=== PATIENT | male | born 1945 | race Caucasian/White ===

== ENCOUNTER 2016-07-13 11:19 | Inpatient (IN) | payer OTHER ==
--- NOTE | ~2016-07-13 | DS ---
Unit #: [id number] #: [id number] Patient: TASHIA STREETER [id number] [address] [place], [place] [address] [id number] I MR#: [id number] NAME: TASHIA STREETER ROOM: 463 Age: 71 Sex: M Admission Date: 07/13/2016 : 1945 Discharge Date: 07/14/2016 Attending Physician: Mandy Smith M.D. Referring Physician: No Primary Care Physician Primary Care Physician: No Primary Care Physician DISCHARGE SUMMARY REASON FOR ADMISSION Back pain from lung biopsy. HISTORY OF PRESENT ILLNESS/HOSPITAL COURSE The patient is a very pleasant 71-year-old male with underlying history of chronic obstructive pulmonary disease, failure to thrive, hypertension as well as resumed lung malignancy. He presented after he had lung biopsy performed on 07/11/2016 at [facility]. He stated that he had back pain ever since that time. He characterized it as sharp. It was noted that he was acutely hypoxic in the emergency room with an O2 saturation of 89% on room air. He underwent a CT of the chest with PE protocol that showed a left upper lung lobe mass as well as patchy airspace disease involving the right lower lobe. The patient received IV Levaquin, O2 support, as well as symptoms management through his hospital course. His pain has now completely resolved. Biopsy results were requested, but currently are pending. From our standpoint the patient is clinically stable to be discharged home. He is to follow up with the [facility] in regard to biopsy results as well as presumed lung malignancy. At this point in time he will be given Levaquin 750 mg p.o. daily for 10 additional days for community acquired pneumonia. FINAL DISCHARGE DIAGNOSES 1. Acute hypoxic respiratory failure, now resolved. 2. Community acquired pneumonia. 3. Lung mass. Workup in progress as outpatient. 4. Acute exacerbation of chronic obstructive pulmonary disease, improved. 5. Hypertension. 6. Weight loss. 7. Failure to thrive. DISCHARGE MEDICATIONS 1. Duo-Neb aerosol solution q.6 h. scheduled. 2. Symbicort 160/4.5 two puffs b.i.d. 3. Prednisone 40 mg p.o. daily. Home medication. 4. Levaquin 750 mg p.o. daily times 10 days. 5. Mingus 5/325 mg 1 tablet p.o. q.6 h. p.r.n. Unit #: [id number] #: [id number] Patient: TASHIA STREETER DISCHARGE CONDITION Stable. DISCHARGE DISPOSITION Home. NOTE It should be noted that all plans have been reviewed with the patient's daughter as well as [id number], present at bedside. They are well aware of the importance of followup in regard to the patient's biopsy results. Dictated by... Hermann Davis/aravind TD: 07/16/2016 09:18 JOB #: [id number] DISCHARGE SUMMARY Page 1 of 1 X Milly Thapa MD X DISCHARGE SUMMARY
--- NOTE | ~2016-07-13 | EKG ---
PATIENT: TASHIA STREETER UNIT #: [id number] Ventricular Rate: 81 BPM Atrial Rate: 81 BPM P-R Interval: 108 ms QRS Duration: 90 ms Q-T Interval: 396 ms QTC Calculation(Bezet): 460 ms P Craig: 80 degrees Calculated R Craig: -16 degrees Calculated T Craig: 15 degrees Diagnosis Line: Sinus rhythm with short DE Diagnosis Line: Otherwise normal ECG Diagnosis Line: When compared with ECG of 10-FEB-2012 14:56, Diagnosis Line: No significant change was found Diagnosis Line: Confirmed by MORELIA WRIGHT MD ([id number]) on Diagnosis Line: 07/15/2016 8:46:07 AM INTERPRETING MD: MECCA
--- NOTE | ~2016-07-13 | CR63 ---
[facility] A Service of [facility] & [facility] RADIOLOGY TEXT RESULTS PATIENT: TASHIA STREETER LOCATION: [facility] : 47 UNIT #: [id number] AGE: [address]: Rishi Kate DO SEX: M ORDER DR: [id number] [facility] [address] [place], [place] [address] [id number] E MR#: [id number] #: [id number] NAME: TASHIA STREETER : 1945 SEX: M STUDY DATE/TIME: 07/13/2016 11:28 UNIT: [facility] ROOM: STUDY DESCRIPTION: CR Chest 2 View Attending Physician: Sukumar Kearney M.D. Referring Physician: Primary Care Physician No Ordering Physician: Sukumar Kearney M.D. Primary Care Physician: Primary Care Physician No MEDICAL IMAGING REPORT This report is preliminary unless electronic signature is present EXAM Chest 2 views, 07/13/2016 11:28 hours HISTORY 71-year-old with history of cough, constipation for 1 month. History of lung biopsy 2 days ago. Chest pain began yesterday. COMPARISON 02/10/2012 FINDINGS Upright PA and 2 lateral views demonstrate normal heart size with a mildly tortuous atherosclerotic aorta without change. There is underlying emphysematous change with a band-like left suprahilar density and linear density left greater than right lung base new from the prior study, favored to be atelectasis. There is no definite effusion or pneumothorax. There is mild chronic blunting of the posterior sulci. IMPRESSION Emphysematous changes with band-like left suprahilar density and linear density left greater than right lung base, new from 02/10/2012. Atelectasis is favored. Dictated by... Cynthia Corona M.D. THIS IS AN ELECTRONICALLY VERIFIED REPORT Cynthia Corona M.D. at 07/13/2016 2:30 PM Maggi TD: 07/13/2016 13:13 JOB #: [id number] [facility] A Service of [facility] & [facility] RADIOLOGY TEXT RESULTS PATIENT: TASHIA STREETER LOCATION: [facility] : 47 UNIT #: [id number] AGE: [address]: Rishi Kate DO SEX: M ORDER DR: MEDICAL IMAGING REPORT Page 1 of 1 COPY
--- NOTE | ~2016-07-13 | HP ---
Unit #: [id number] #: [id number] Patient: TASHIA STREETER [id number] [facility] [address] [place], [place] [address] [id number] E MR#: [id number] NAME: TASHIA STREETER ROOM: Age: 71 Sex: M Admission Date: 07/13/2016 : 1945 Attending Physician: Rishi Kate D.O. Referring Physician: Primary Care Physician No Primary Care Physician: Primary Care Physician No HISTORY AND PHYSICAL CHIEF COMPLAINT Back pain from lung biopsy. HISTORY OF PRESENT ILLNESS The patient is a 71-year-old male with past medical history of presumed lung malignancy, COPD, hypertension, who presented to the emergency department for evaluation of the above. The patient apparently had a lung biopsy on 07/11/2016 at the [facility]. He has had back pain since that time. He states that it is "sharp." It is exacerbated by movement and inspiration. He has also been short of breath. He does have a cough. He denies any fever. In the emergency department, initially oxygen saturation was 98% on room air. It apparently dropped to 89% on room air during the course of evaluation in the emergency department. CT of the chest PE protocol was done and showed a left upper lobe spiculated mass as well as patchy airspace disease involving the right lower lobe. There are small bilateral pleural effusions as well. The patient received Levaquin and Solu-Medrol in the emergency department. He is being admitted to [facility] for evaluation and further treatment. PAST MEDICAL HISTORY 1. Admission to [facility] 02/10/2012 for right hip fracture. He underwent right hip hemiarthroplasty during that admission. 2. Lung mass, presumably malignant. The patient is receiving radiation at the [facility] with the last treatment being a week ago. 3. COPD. 4. Hypertension. PAST SURGICAL HISTORY 1. Lung biopsy. 2. Right hip hemiarthroplasty. ALLERGIES Penicillin. HOME MEDICATIONS 1. Prednisone. 2. Inhaler. 3. Antibiotic. These are listed on the ER triage sheet. Home medications will need to be Unit #: [id number] #: [id number] Patient: TASHIA STREETER reviewed and verified. SOCIAL HISTORY The patient lives alone. He quit smoking 3 weeks ago. He states that he drinks one beer daily. He denies ever going through withdrawal. Per record review, he has a history of heavy alcohol use. His code status is a FULL CODE. FAMILY HISTORY Notable for his father having lung cancer. REVIEW OF SYSTEMS A complete review of systems is negative except as indicated in the HPI. The patient is a somewhat poor historian. I asked him if he was currently receiving chemotherapy and he was unclear what that meant. He does not have a port. The patient states that he has lost weight but then started to gain some back after he quit smoking. He is unsure of the exact amount. PHYSICAL EXAMINATION VITAL SIGNS: Temperature 97.7, pulse 77, respirations 18, blood pressure 152/62, oxygen saturation 98% on room air but dropped to 89% on room air during the course of his evaluation. GENERAL: The patient is a male who is awake and alert in no acute distress. HEENT: Head is atraumatic. Mucous membranes are moist. NECK: Supple. Trachea is midline. LUNGS: Demonstrate scattered wheezes and rhonchi. Breathing not labored with conversation. HEART: Regular rate and rhythm. ABDOMEN: Soft, nontender. Bowel sounds present in all four quadrants. EXTREMITIES: Nontender with no pedal edema. NEUROLOGIC: Patient is awake and alert. He is oriented x3. He follows commands. PSYCHIATRIC: Mood and affect are normal. Patient is cooperative. SKIN OF EXAMINED AREAS: Warm and dry. DIAGNOSTIC STUDIES LABORATORY: Complete blood count notable for white blood cell count of 11.8, hemoglobin 9.8, hematocrit 33.7, MCV is 70.7, RDW is 18.2, platelets 45. Basic metabolic panel notable for sodium 130, chloride 92. IMAGING: Chest x-ray shows emphysematous changes. CT of the chest PE protocol shows no PE. There is a left upper lobe spiculated mass with patchy airspace disease involving the right lung and small bilateral pleural effusions. ASSESSMENT The patient is a 71-year-old male with: 1. Acute respiratory failure, hypoxic. 2. Pneumonia, community acquired. 3. Lung malignancy. The patient had a biopsy at the [facility] two days ago (no records). 4. Chronic obstructive pulmonary disease exacerbation. 5. Hyponatremia. The patient's sodium is 130. 6. Microcytic anemia. The patient's hemoglobin is 9.8, it was 10.3 on 02/15/2012. 7. Hypertension. Unit #: [id number] #: [id number] Patient: TASHIA STREETER 8. Weight loss. PLAN 1. Admit to intermediate level. 2. Healthy-heart diet if passes bedside swallow. 3. Supplemental oxygen 2-4 liters to maintain saturations greater than 92%. 4. DuoNeb q.4 h. while awake and q.2 h. p.r.n. 5. Solu-Medrol 80 mg IV q.12 h. 6. Mucinex 600 mg p.o. b.i.d. 7. Blood cultures x2. 8. Sputum culture and sensitivity. 9. Procalcitonin level. 10. Levaquin 750 mg IV daily pending further workup. 11. Get records from [facility] including pathology report if available. 12. Iron studies, B12 and folate. 13. Hemoccult stool. 14. Serial cardiac enzymes. 15. EKG if not done. 16. Protonix for GI prophylaxis since the patient will be on Solu-Medrol. 17. SCDs for DVT prophylaxis. 18. Alcohol withdrawal protocol. 19. Repeat labs in the morning. 20. Regarding CODE STATUS: Patient is a FULL CODE. 21. Additional workup and consultants based on above. Dictated by Hermann Talley/savita TD: 07/13/2016 20:08 JOB #: [id number] HISTORY AND PHYSICAL Page 1 of 1 X Mandy Smith MD X HISTORY AND PHYSICAL
--- NOTE | ~2016-07-13 | CT16 ---
[facility] A Service of [facility] RADIOLOGY TEXT RESULTS PATIENT: TASHIA STREETER LOCATION: [facility] 463- : [birth year] UNIT #: [id number] AGE: [address]: Mandy Smith MD SEX: M ORDER DR: [id number] [facility] [address] [place], [place] [address] [id number] E MR#: [id number] Acc #: [id number] NAME: TASHIA STREETER : 1945 SEX: M STUDY DATE/TIME: 07/13/2016 15:47 UNIT: [facility] ROOM: STUDY DESCRIPTION: CT Angio Chest for PE Attending Physician: Rishi Kate D.O. Referring Physician: No Primary Care Physician Ordering Physician: Sukumar Kearney M.D. Primary Care Physician: No Primary Care Physician MEDICAL IMAGING REPORT This report is preliminary unless electronic signature is present EXAM CT pulmonary angiography chest for PE. HISTORY Posterior chest pain 3 days. Right lung biopsy 10 days ago [facility]. Coughing, pain chest/stomach 3 days. No shortness of air per patient. TECHNIQUE CT pulmonary angiography performed with intravenous administration 100 mL Isovue-370. This CT exam was performed with one or more of the following radiation dose reduction techniques: automatic exposure control, adjustment of mA and/or kV according to patient size, and iterative reconstruction. COMPARISON No prior chest CTs for comparison. FINDINGS Visualized thyroid unremarkable. No axillary adenopathy noted. 1 cm short-axis precarinal lymph node. 8-9 mm in short axis central left hilar node. 9 mm short-axis inferior left hilar node. Heart normal in size. Small bilateral pleural effusions right greater than left. These are not drainable fluid collections. Visualized portions of liver, gallbladder, spleen, pancreas, adrenal glands, upper renal poles, esophagus, stomach, small bowel and colon are unremarkable. The lungs are diffusely abnormal. There is extensive underlying centrilobular and panlobular emphysema. In the right lung upper lobe posteriorly, image 45, there is a 1.1 cm x 7 mm slightly spiculated nodule. In the more medial and superior right upper lobe, there is a more band-like irregularly marginated density measuring 9 mm x 5 mm transversely by 2.8 cm in craniocaudal extent. The patient is noted in STS. [facility] A Service of [facility] RADIOLOGY TEXT RESULTS PATIENT: TASHIA STREETER LOCATION: [facility] 463- : 49 UNIT #: [id number] AGE: [address]: Mandy Smith MD SEX: M ORDER DR: history to be status post right lung biopsy. Please correlate with location of lung biopsy. These right upper lobe densities are nonspecific. Their irregular margination could be a secondary to acute infectious or inflammatory disease superimposed on emphysematous lung, but malignant neoplastic nodules are not excluded. More inferiorly in the right upper lobe, there are some mild hazy ground-glass densities likely representing mild pneumonitis. Bronchial wall thickening in the bilateral lower lobes right greater than left likely reflecting components of acute and chronic bronchitis. There are areas of mucous plugging in the right lower lobe. Patchy airspace disease at the right lung base posterolaterally likely reflecting pneumonia. Follow-up to resolution is recommended. In the left upper lobe there is a dominant spiculated mass measuring 1.6 cm x 3.2 cm x 1.9 cm (image 54). Superomedial to this, there is a 6 mm x 1 cm nodule. Anterior to the dominant mass, there is an 8-9 mm spiculated nodule on image #54. Posterolateral to the dominant spiculated mass, there is a spiculated nodule abutting the major fissure measuring 9 mm x 8-9 mm x 1.7 cm. The dominant central left upper lobe mass and the adjacent satellite spiculated nodules are strongly concerning for malignancy. If this has not previously been evaluated, bronchoscopic assessment would be recommended. These nodules do appear amenable to further characterization with CT/PET scan. The dominant mass may be amenable to percutaneous aspiration sampling though the patient is at significantly increased risk for pneumothorax given the extensive emphysema. The lower portion of the left upper lobe shows no clearly acute abnormality. There is bronchial wall thickening in the left lower lobe more likely representing components of chronic bronchitis. The pulmonary arteries are well opacified. No PE. Aortic root mildly static measuring about 3.3 cm in diameter at level of the sinuses of Valsalva. Ascending aorta mildly ectatic measuring about 3.4 cm diameter. Atherosclerotic arterial calcifications in systemic and coronary circulation. Prominent atherosclerotic arterial calcifications noted in the proximal right vertebral artery. The appearance raising concern for potentially significant underlying luminal narrowing. The celiac axis shows moderate proximal narrowing due to atherosclerotic plaque. The superior mesenteric artery shows moderate to severe proximal luminal narrowing due to atherosclerotic plaque. The visualized renal arteries are grossly patent. Bony structures show degenerative change in the spine. Small sclerotic foci in the left humeral head likely small bone islands. No acute-appearing bony abnormality. IMPRESSION 1. Abnormal examination. Please see complete dictation above for full details. No PE. No aortic dissection or zack aneurysmal dilatation. Mildly ectatic aortic root measuring about 3.3 cm in diameter at level of sinuses of Valsalva and mildly ectatic ascending aorta measuring about 3.4 cm in diameter. Significant atherosclerotic arterial calcification in systemic and coronary circulation. Note is made of particularly prominent calcifications [facility] A Service of [facility] RADIOLOGY TEXT RESULTS PATIENT: TASHIA STREETER LOCATION: [facility] 463-01 : 49 UNIT #: [id number] AGE: [address]: Mandy Smith MD SEX: M ORDER DR: in the proximal right vertebral artery which could reflect underlying hemodynamically significant luminal narrowing. There is at least moderate narrowing of the proximal celiac axis, and there is moderate to severe narrowing of the proximal superior mesenteric artery due to atherosclerotic disease. 2. Extensive underlying centrilobular and panlobular emphysema. 3. Bilateral noncalcified nodules more pronounced in the left lung. Please see specific sizes and locations in body of report above. In the central left upper lobe, there is a spiculated mass measuring 1.6 cm x 3.2 cm x 1.9 cm. Adjacent spiculated peripheral nodules as described above. The left lung mass is strongly concerning for malignancy. The patient's history states prior right lung biopsy 2 days ago. Please confirm laterality of biopsy. If this left upper lobe lesion has not been sampled, I would strongly recommend bronchoscopic evaluation. It is amenable to characterization with CT/PET scan as are most of the other suspicious nodules. The dominant left upper lobe lesion is probably amenable to percutaneous sampling though the patient is at significantly increased risk for symptomatic pneumothorax given the extensive emphysema. 4. Bronchial wall thickening in the bilateral emo-di-zogmt lung zones more pronounced in the right lower lobe than elsewhere and probably reflecting components of acute bronchitis superimposed on chronic bronchitis in the right lower lobe. 5. Patchy airspace disease in the periphery of the right lower lobe favored to represent pneumonia. Some very mild hazy ground-glass densities in the anteromedial right upper lobe also favored to represent mild pneumonitis. 6. Areas of mucous plugging in the right lower lobe. 7. There are some borderline enlarged mediastinal and right hilar lymph nodes. Nonspecific appearance. Benign and malignant etiologies could be considered. 8. Very small bilateral pleural effusions right greater than left. These are not drainable fluid collections. 9. No acute-appearing abnormality in the visualized upper abdomen. Dictated by... Adalberto Avelar M.D. THIS IS AN ELECTRONICALLY VERIFIED REPORT Adalberto Avelar M.D. at 07/17/2016 7:36 AM JAYDEN/rachel TD: 07/13/2016 19:13 JOB #: [id number] MEDICAL IMAGING REPORT Page 1 of 1 COPY
[2016-07-13 13:56] LABS: BASOPHIL% 0.2 % (0-2.5); EOSINOPHIL% 0.1 % (0.0-7.0); HEMATOCRIT 33.7 % (38.0-50.0); HEMOGLOBIN 9.8 gm/dL (13.0-16.0); LYMPHOCYTE# 0.3 X10e3 (1.0-3.5); LYMPHOCYTE% 2.9 % (17.0-45.0); MEAN CELL VOLUME 70.7 FL (83-96); MEAN CORPUSCULAR HEMOGLOBIN 20.6 PG (28-34); MEAN CORPUSCULAR HGB CONC 29.2 g/dL (30-36); MEAN PLATELET VOLUME 7.3 FL (6.5-11.5); MONOCYTE# 0.6 X10e3 (0-1.0); MONOCYTE% 5.4 % (3.0-12.0); NEUTROPHIL# 10.8 X10e3 (1.5-7.1); NEUTROPHIL% 91.4 % (40-75); PLATELET COUNT 485 X10e3 (140-420); RED BLOOD COUNT 4.77 X10e (3.90-5.60); RED CELL DISTRIBUTION WIDTH 18.2 % (11.0-15.5); WHITE BLOOD COUNT 11.8 X10e3 (4.0-10.5)
[2016-07-13 13:59] LABS: DIFF IND YES
[2016-07-13 14:03] LABS: BUN/CREATININE RATIO 16.66; CALCIUM SERUM 8.9 mg/dL (8.4-10.2); CREATININE SERUM 0.6 mg/dL (0.6-1.4); GLOM FILT RATE Estimated 102.6 mL/min (>60); POTASSIUM 3.6 mmol/L (3.5-5.1)
[2016-07-13 14:16] LABS: PLATELET ESTIMATE NORMAL (NORMAL)
[2016-07-13 14:17] LABS: ANISOCYTOSIS SL
[2016-07-13 14:23] LABS: HYPOCHROMIA MOD
[2016-07-13 14:24] LABS: MICROCYTOSIS SL; OVALOCYTES PRESENT
[2016-07-13] MEDS ORDERED: LISINOPRIL PO (16:38)
[2016-07-13] MEDS ORDERED: LASIX PO (16:38)
[2016-07-13] MEDS ORDERED: PAXIL PO (16:39)
[2016-07-13] MEDS ORDERED: CENTRUM COMPLE1 EACH PO (16:40)
[2016-07-13] MEDS ORDERED: VITAMIN D32000 UNIT PO (16:40)
[2016-07-13] MEDS ORDERED: NEXIUM PO (16:41)
[2016-07-13] MEDS ORDERED: ASPIRIN81 M2 PO (16:41)
[2016-07-13] MEDS ORDERED: LYRICA75 MG PO (16:42)
[2016-07-13] MEDS ORDERED: DELTASONE20 MG PO (19:17)
[2016-07-13] MEDS ORDERED: SYMBICORT INH (19:17)
[2016-07-13 19:19] LABS: PROCALCITONIN 0.07 NG/ML
[2016-07-14 00:53] LABS: CK TOTAL 22 IU/L (36-174)
[2016-07-14 03:58] LABS: HEMATOCRIT 32.4 % (38.0-50.0); HEMOGLOBIN 9.7 gm/dL (13.0-16.0); LYMPHOCYTE# 0.2 X10e3 (1.0-3.5); LYMPHOCYTE% 2.1 % (17.0-45.0); MEAN CELL VOLUME 70.1 FL (83-96); MEAN PLATELET VOLUME 7.2 FL (6.5-11.5); MONOCYTE# 0.1 X10e3 (0-1.0); MONOCYTE% 1.3 % (3.0-12.0); NEUTROPHIL# 9.4 X10e3 (1.5-7.1); NEUTROPHIL% 96.6 % (40-75); PLATELET COUNT 527 X10e3 (140-420); RED BLOOD COUNT 4.63 X10e (3.90-5.60); WHITE BLOOD COUNT 9.8 X10e3 (4.0-10.5)
[2016-07-14 03:59] LABS: DIFF IND NO
[2016-07-14 04:07] LABS: ALBUMIN SERUM 3.3 g/dL (3.5-5.0); BILIRUBIN,TOTAL 0.7 mg/dL (0.2-2.0); BUN/CREATININE RATIO 16.66; CREATININE SERUM 0.9 mg/dL (0.6-1.4); GLOM FILT RATE Estimated 86.8 mL/min (>60); POTASSIUM 4.4 mmol/L (3.5-5.1); PROTEIN TOTAL SERUM 7.5 g/dL (6.0-8.3)
[2016-07-14] MEDS ORDERED: LORCET 5-325 M1 EACH PO (12:48)
[2016-07-14] MEDS ORDERED: COMBIVENT U/D3 M4 INH (12:49)
[2016-07-14] MEDS ORDERED: LEVAQUIN750 MG PO (12:50)
[2016-07-14] MEDS ORDERED: MULTIVITAMINS1 EAC3 PO (12:53)
== END 2016-07-14 13:15 | disposition home or self-care (01) | DRG 189 ==
LOC: CED 11:19 → CEDOF 18:05 → C4C 07-14 01:58
PROVIDERS: Emergency Medicine; Family Medicine
PROC: B32TYZZ Computerized Tomography (CT Scan) of Left Pulmonary Artery using Other Contrast (ICD-10-PCS; principal; 2016-07-13)
PROC: B32SYZZ Computerized Tomography (CT Scan) of Right Pulmonary Artery using Other Contrast (ICD-10-PCS; 2016-07-13)
DX: J96.01 Acute respiratory failure with hypoxia (principal); J18.9 Pneumonia, unspecified organism; J44.0 Chronic obstructive pulmonary disease with (acute) lower respiratory infection; J44.1 Chronic obstructive pulmonary disease with (acute) exacerbation; E87.1 Hypo-osmolality and hyponatremia; R13.11 Dysphagia, oral phase; Z88.0 Allergy status to penicillin; I10 Essential (primary) hypertension; R91.8 Other nonspecific abnormal finding of lung field; R63.4 Abnormal weight loss; D64.9 Anemia, unspecified; M54.9 Dorsalgia, unspecified; G89.18 Other acute postprocedural pain; Z87.891 Personal history of nicotine dependence; R62.7 Adult failure to thrive
CPT/HCPCS: 36415; 71020; 71275; 80048; 80053; 82308; 82550; 82607; 82728; 82746; 83540; 83550; 84484; 85025; 87040; 87070; 87205; 92610; 93005; 94640; 94760; 99285; J1956; J2930; J3411; J7042; Q9967